=== PATIENT | male | born 1970 | race Caucasian/White ===

== ENCOUNTER 2017-05-01 10:46 | Emergency (ER) | payer BC ==
[2017-05-01 10:59] VITALS: BP 98/55
--- NOTE | 2017-05-01 12:11 | RAD ---
INDICATION: Cough and fever. Symptoms for one week. COMPARISON: January 08, 2014 CT abdomen. TECHNIQUE: Dual energy PA and routine lateral views of the chest were obtained. REPORT: Linear subsegmental atelectasis along the RIGHT minor fissure. The lungs and pleural spaces are otherwise clear. The heart, pulmonary vasculature, and mediastinal contours are unremarkable. IMPRESSION: No compelling evidence for pneumonia. Linear subsegmental atelectasis along the RIGHT minor fissure.
[2017-05-01] MEDS ORDERED: Albuterol HFA INHALER* 8 gm MDI INH ONE (12:20)
--- NOTE | 2017-05-01 12:25 | UC ---
Respiratory Complaint HPI - HPI Summary HPI Summary: 46 yo male with cough x 1 week bringing up phlegm some sore throat myalgia feverish and chills no n/v/d - History of Current Complaint Chief Complaint: UCRespiratory Stated Complaint: SORE THROAT, COUGH, CHILLS Time Seen by Provider: 05/01/17 11:34 Hx Obtained From: Patient Onset/Duration: Gradual Onset, Lasting Days - 7 Timing: Constant Severity Initially: Mild Severity Currently: Moderate Pain Intensity: 2 Pain Scale Used: 0-10 Numeric Character: Cough: Productive Aggravating Factors: Exertion, Deep Breaths Alleviating Factors: Nothing Associated Signs And Symptoms: Positive: Fever, Chills, Wheezing - Allergies/Home Medications Allergies/Adverse Reactions: Allergies Allergy/AdvReac Type Severity Reaction Status Date / Time Penicillins Allergy Blisters Verified 01/08/14 19:47 Home Medications: Home Medications Ibuprofen [Advil] 600 mg PO 05/01/17 [History] PMH/Surg Hx/FS Hx/Imm Hx Previously Healthy: Yes Respiratory History: Bronchitis - Surgical History Surgical History: Yes Surgery Procedure, Year, and Place: Appendectomy, 1979, [facility]. UMBILICAL HERNIA REPAIR 05/2013 - Family History Known Family History: Negative: Cardiac Disease, Hypertension, Diabetes, Respiratory Disease - Social History Alcohol Use: None Substance Use Type: None Smoking Status (MU): Never Smoked Tobacco Review of Systems Constitutional: Fever, Chills, Fatigue Skin: Negative Eyes: Negative ENT: Negative Respiratory: Cough Cardiovascular: Negative Gastrointestinal: Negative Genitourinary: Negative Motor: Negative Neurovascular: Negative Musculoskeletal: Myalgia Neurological: Negative Psychological: Negative Is Patient Immunocompromised?: No All Other Systems Reviewed And Are Negative: Yes Physical Exam Triage Information Reviewed: Yes Appearance: Well-Appearing, No Pain Distress, Well-Nourished Vital Signs: Initial Vital Signs Temp 98.9 F 05/01/17 10:55 Pulse 85 05/01/17 10:55 Resp 18 05/01/17 10:55 BP 98/55 05/01/17 10:55 Pulse Ox 96 05/01/17 10:55 Vital Signs Reviewed: Yes Eyes: Positive: Conjunctiva Clear ENT: Positive: Hearing grossly normal, Pharyngeal erythema, Nasal congestion, Nasal drainage, TMs normal, Uvula midline. Negative: TM bulging, TM dull, TM red, Tonsillar swelling, Tonsillar exudate, Trismus, Muffled voice, Hoarse voice , Dental tenderness, Sinus tenderness Neck: Positive: Supple, Nontender, No Lymphadenopathy Respiratory: Positive: No respiratory distress, No accessory muscle use, Wheezing Cardiovascular: Positive: RRR, No Murmur. Negative: Tachycardia, Bradycardia Musculoskeletal: Positive: ROM Intact, No Edema Neurological: Positive: Alert Psychological Exam: Normal Skin Exam: Normal UC Diagnostic Evaluation - Laboratory O2 Sat by Pulse Oximetry: 96 - normal/not hypoxic - Radiology Xray Interpretation: Positive (See Comments) - No compelling evidence for pneumonia. Linear subsegmental atelectasis along Radiology Interpretation Completed By: Radiologist Respiratory Course/Dx - Differential Dx/Diagnosis Provider Diagnoses: acute bronchitis with bronchospasm Discharge - Discharge Plan Condition: Stable Disposition: HOME Patient Education Materials: Acute Bronchitis (ED), Wheezing (ED) Referrals: Elizabeth Sr MD [Primary Care Provider] - 5 Days (if not better) Additional Instructions: recheck for new or worsening symptoms see your MD early next week if not completely better
== END 2017-05-01 12:37 | disposition home or self-care (01) ==
LOC: UCEAST 10:46
DX: J20.9 Acute bronchitis, unspecified (principal)
CPT/HCPCS: 71020; 87502; 87651; 99202; A9270-GY; G0463

== ENCOUNTER 2017-09-12 13:31 | Emergency (ER) | payer BC ==
[2017-09-12 14:40] VITALS: BP 111/77
--- NOTE | 2017-09-12 14:55 | UC ---
Back Pain HPI - HPI Summary HPI Summary: 46 year old male with neck / back discomfort. c/o awakening last saturday with a stiff neck. States continues to remain tight, and having hard time sleeping. Has haad this in the past and feels the same. no injury. no radiating pain no weakness in arm. no neck pain . he woke up with this about 6 days ago and not resolved [ End ] - History of Current Complaint Chief Complaint: UCBackPain Stated Complaint: BACK PAIN Time Seen by Provider: 09/12/17 14:48 Hx Obtained From: Patient Onset/Duration: Sudden Onset Timing: Intermittent Severity Initially: Moderate Severity Currently: Moderate Pain Intensity: 7 Character: Spasmodic, Stiffness Aggravating Factor(s): Movement Alleviating Factor(s): Rest - Allergies/Home Medications Allergies/Adverse Reactions: Allergies Allergy/AdvReac Type Severity Reaction Status Date / Time Penicillins Allergy Blisters Verified 09/12/17 14:33 PMH/Surg Hx/FS Hx/Imm Hx Previously Healthy: Yes Psychological History: Anxiety, Depression - Surgical History Surgical History: Yes Surgery Procedure, Year, and Place: Appendectomy, 1979, [facility]. UMBILICAL HERNIA REPAIR 05/2013 - Family History Known Family History: Negative: Cardiac Disease, Hypertension, Diabetes, Respiratory Disease - Social History Occupation: Employed Full-time Alcohol Use: None Substance Use Type: None Smoking Status (MU): Never Smoked Tobacco Review of Systems Musculoskeletal: Arthralgia, Decreased ROM, Other: - muscle tightness Is Patient Immunocompromised?: No All Other Systems Reviewed And Are Negative: Yes Physical Exam Triage Information Reviewed: Yes Appearance: Well-Appearing, No Pain Distress, Well-Nourished Vital Signs: Initial Vital Signs Temp 98.2 F 09/12/17 14:35 Pulse 71 09/12/17 14:35 Resp 20 09/12/17 14:35 BP 111/77 09/12/17 14:35 Pulse Ox 99 09/12/17 14:35 Vital Signs Reviewed: Yes Eye Exam: Normal ENT Exam: Normal Neck exam: Normal Neck: Positive: 1 Respiratory Exam: Normal Cardiovascular Exam: Normal Musculoskeletal Exam: Normal Musculoskeletal: Positive: Strength Intact, ROM Intact, Other: - left scapulothoracic tenderness to palpation that was moderate and had hypertonicity present Neurological Exam: Normal Psychological Exam: Normal Skin Exam: Normal Back Pain Course/Dx - Course Course Of Treatment: discussed PT and he declined script. he is to go to chiro soon and I advised caution . f/u with PCP. cont with prn NSAIDs and muscle relaxer. has taken them before and it is what helped him. no red flags. - Differential Dx/Diagnosis Differential Diagnosis/HQI/PQRI: Strain, Sprain, Other - spasm Provider Diagnoses: Left scapulothoracic back spasm Discharge - Sign-Out/Discharge Documenting (check all that apply): Discharge - Discharge Plan Condition: Good Disposition: HOME Prescriptions: tiZANidine TAB* [Zanaflex TAB*] 2 mg PO DAILY PRN #10 tab PRN Reason: Spasms Patient Education Materials: Muscle Spasm (ED) Referrals: Elizabeth Sr MD [Primary Care Provider] - 4 Days Additional Instructions: Consider Physical therapy for your upper back / neck pain. - Billing Disposition and Condition Condition: GOOD Disposition: HOME
== END 2017-09-12 15:10 | disposition home or self-care (01) ==
LOC: UCCORT 13:31
DX: M62.830 Muscle spasm of back (principal); F41.9 Anxiety disorder, unspecified; F32.9 Major depressive disorder, single episode, unspecified; Z88.0 Allergy status to penicillin
CPT/HCPCS: 99212; G0463

== ENCOUNTER 2018-07-26 08:45 | Emergency (ER) | payer BC ==
[2018-07-26 09:13] VITALS: BP 89/56
[2018-07-26 09:32] LABS: Influenza A Molecular POSITIVE (Negative)
--- NOTE | 2018-07-26 09:39 | UC ---
FLU HPI - HPI Summary HPI Summary: Pt present wiht c/o sudden onset of abdominal discomfort, diarrhea on 07/23/18. Pt states that diarrhea has resolved and now has chills and body aches. - History of Current Complaint Chief Complaint: UCRespiratory Stated Complaint: COUGH, FEVER, CHILLS Time Seen by Provider: 07/26/18 09:18 Hx Obtained From: Patient Onset/Duration: Sudden Onset, Lasting Days, Still Present Severity Currently: Moderate Severity Initially: Moderate Pain Intensity: 7 Associated Signs & Symptoms: Positive: Fever, Myalgia, Cough, Nasal Congestion, Diarrhea Related Hx: Possible Flu/Infectious Exposure - Risk Factors Influenza Risk Factors: Negative - Allergy/Home Medications Allergies/Adverse Reactions: Allergies Allergy/AdvReac Type Severity Reaction Status Date / Time Penicillins Allergy Blisters Verified 07/26/18 09:12 Home Medications: Home Medications Acetaminophen [Acetaminophen Extra Strength] 1,500 mg PO Q4HR PRN 07/26/18 [ History Confirmed 07/26/18] PMH/Surg Hx/FS Hx/Imm Hx Previously Healthy: Yes Psychological History: Anxiety, Depression - Surgical History Surgical History: Yes Surgery Procedure, Year, and Place: Appendectomy, 1979, [facility]. UMBILICAL HERNIA REPAIR 05/2013 - Family History Known Family History: Negative: Cardiac Disease, Hypertension, Diabetes, Respiratory Disease - Social History Occupation: Employed Full-time Lives: With Family Alcohol Use: None Substance Use Type: None Smoking Status (MU): Never Smoked Tobacco Have You Smoked in the Last Year: No Review of Systems All Other Systems Reviewed And Are Negative: Yes Constitutional: Positive: Negative Skin: Positive: Negative Eyes: Positive: Negative ENT: Positive: Sinus Congestion Respiratory: Positive: Cough Cardiovascular: Positive: Negative Gastrointestinal: Positive: Abdominal Pain, Diarrhea Genitourinary: Positive: Negative Motor: Positive: Negative Neurovascular: Positive: Negative Musculoskeletal: Positive: Myalgia Neurological: Positive: Headache Psychological: Positive: Negative Is Patient Immunocompromised?: No Physical Exam Triage Information Reviewed: Yes Appearance: Ill-Appearing Vital Signs: Initial Vital Signs Temp 98.4 F 07/26/18 09:08 Pulse 108 07/26/18 09:08 Resp 16 07/26/18 09:08 BP 89/56 07/26/18 09:08 Pulse Ox 97 07/26/18 09:08 Vital Signs Reviewed: Yes Eye Exam: Normal ENT: Positive: Nasal congestion Dental Exam: Normal Neck exam: Normal Respiratory Exam: Normal Cardiovascular Exam: Normal Abdominal Exam: Normal Musculoskeletal Exam: Normal Neurological Exam: Normal Psychological Exam: Normal Skin Exam: Normal Flu Course/Dx - Differential Dx/Diagnosis Differential Diagnosis/HQI/PQRI: Influenza, Upper Respiratory Infection Provider Diagnosis: Influenza A Discharge - Sign-Out/Discharge Documenting (check all that apply): Patient Departure All imaging exams completed and their final reports reviewed: No Studies - Discharge Plan Condition: Stable Disposition: HOME Patient Education Materials: Influenza (ED) Referrals: Bernardo Gilliland MD [Primary Care Provider] - If Needed - Billing Disposition and Condition Condition: STABLE Disposition: Home
== END 2018-07-26 09:45 | disposition home or self-care (01) ==
LOC: UCCORT 08:45
DX: J10.1 Influenza due to other identified influenza virus with other respiratory manifestations (principal); Z88.0 Allergy status to penicillin
CPT/HCPCS: 99211; G0463